=== PATIENT | male | born 1985 | race Caucasian/White ===

== ENCOUNTER 2023-05-14 19:21 | Emergency (ER) | payer SELFPAY ==
[~2023-05-14] VITALS: Ht 160 cm; Wt 61.7 kg
--- NOTE | 2023-05-14 19:26 | NUR ---
[facility] ALS TO BED #7
[2023-05-14 19:27] VITALS: BP 145/71; PULSE 128; RESP 17; TEMP 98.3; O2SAT 98
[2023-05-14 19:49] VITALS: BP 115/59; PULSE 124; RESP 17; TEMP 98.3
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
[2023-05-14 19:53] VITALS: O2SAT 98
--- NOTE | 2023-05-14 20:10 | NUR ---
PATIENT BIB [place] [employer]. PATIENT EXAMINED BY . PATIENT MEDICALLY CLEARED AND RELEASED IN CUSTODY IN STABLE CONDITION. ORIGINAL PRE-BOOK FORM GIVEN TO OFFICER #[id number].
== END 2023-05-14 20:10 ==
LOC: MED 19:21
DX: S21.132A Puncture wound without foreign body of left front wall of thorax without penetration into thoracic cavity, initial encounter (principal); S21.131A Puncture wound without foreign body of right front wall of thorax without penetration into thoracic cavity, initial encounter; W86.8XXA Exposure to other electric current, initial encounter; Y93.89 Activity, other specified; Y92.89 Other specified places as the place of occurrence of the external cause; Y99.8 Other external cause status
CPT/HCPCS: 93005; 99283

== ENCOUNTER 2023-09-11 18:39 | Emergency (ER) | payer MEDICAID ==
[~2023-09-11] VITALS: Ht 165.1 cm; Wt 62.1 kg
[2023-09-11 18:54] VITALS: BP 128/88; PULSE 110; RESP 18; TEMP 98.8; O2SAT 99
[2023-09-11] MEDS ORDERED: KETOROLAC 30 MG/ML VIAL IM ONE (19:20)
[2023-09-11] MEDS ORDERED: ACETAMINOPHEN EXTRA STRENGTH 500 MG TAB PO ONE (19:20)
[2023-09-11] MEDS ORDERED: LIDOCAINE/EPI MPF 1%1:200000 30 ML VIAL INJ ONE (19:45)
[2023-09-11] MEDS ORDERED: BACITRACIN OINT 500 UNITS/GM PKT TP ONE ×2 (20:45→20:46)
== END 2023-09-11 20:48 | disposition home or self-care (01) ==
LOC: MED 18:39
DX: M79.645 Pain in left finger(s) (principal)
CPT/HCPCS: 90471; 90715; 96372; 99284; J1885; J2001